=== PATIENT | female | born 1995 | race Caucasian/White ===

== ENCOUNTER 2022-11-13 15:03 | Outpatient (CLI) | payer OTHER, SELFPAY ==
--- NOTE | 2022-11-13 15:00 | CRLHL7_ITS ---
For Patients: As a result of the Century Cures Act, medical imaging exams and procedure reports are released immediately into your electronic medical record. You may view this report before your referring provider. If you have questions, please contact your health care provider. INDICATION: Abnormal uterine bleeding COMPARISON: none TECHNIQUE: 2D perez scale and color Doppler images were acquired of the pelvis using a transabdominal and transvaginal approach. FINDINGS: Sonographic images demonstrate a normal size and smooth outer contour of the uterus. Uterus measures 5.6 cm in length by 5.3 cm in AP diameter by 3.7 cm in transverse dimension. The myometrium has a normal uniform echotexture. The endometrial lining measures 13 mm in composite thickness. The right ovary measures 4.2 x 1.8 x 2.2 cm in size and the left ovary measures 3.0 x 1.9 x 2.1 cm. The ovaries demonstrate normal arterial and venous blood flow on color Doppler analysis. A collapsing hemorrhagic cyst is present within the right ovary measuring 1.9 x 1.8 x 1.4 cm. There is also a simple right paraovarian cyst measuring 10 x 8 x 7 millimeters. Moderate pelvic free fluid noted. IMPRESSION: Endometrial thickness 13 millimeters. No endometrial fluid. No uterine fibroid. Dictated by Diego Marmolejo MD @ 11/14/2022 9:22:46 AM (Electronically Signed)
== END 2022-11-13 15:04 | disposition home or self-care (01) ==
PROVIDERS: Visit Provider Registered Nurse
DX: N93.9 Abnormal uterine and vaginal bleeding, unspecified (principal); R93.89 Abnormal findings on diagnostic imaging of other specified body structures
CPT/HCPCS: 76830; 76856